=== PATIENT | male | born 1990 | race Caucasian/White ===

== ENCOUNTER 2017-05-16 21:30 | Emergency (ER) | payer OTHER ==
[~2017-05-16] VITALS: Ht 175.3 cm; Wt 68.0 kg
[~2017-05-16 21:30] MED LIST: ADVAIR 25028 BLISTER INH; ADVAIR 50028 BLISTE1 INH; ALBUTEROL SULF8.5 GM IH; ALBUTEROL0.83 MG/ML INH; ALBUTEROL2.5 MG/3 M IH; CLARITIN10 M5 PO; CLARITIN10 MG PO; DELTASONE10 MG PO; KEFLEX500 MG PO; NO MEDS; PREDNISONE20 M1 PO; PROAIR HFA8.5 GM IH; PROVENTIL HFA6.7 G1 IH; SINGULAIR10 M1 PO; SINGULAIR10 MG PO; SYMBICORT 160-1 PUFF INH; VENTOLIN HFA18 GM INH
[2017-05-16] MEDS ORDERED: VENTOLIN HFA18 G2 PO ×2 (22:09→22:10)
[2017-05-16] MEDS ORDERED: SINGULAIR10 M1 PO (22:09)
[2017-05-16] MEDS ORDERED: ZYRTEC10 M7 PO (22:10)
== END 2017-05-16 23:12 ==
LOC: EDMED 21:30
PROC: 2W3QXYZ Immobilization of Right Lower Leg using Other Device (ICD-10-PCS; principal; 2017-05-16)
DX: S93.401A Sprain of unspecified ligament of right ankle, initial encounter (principal); S93.601A Unspecified sprain of right foot, initial encounter; S83.91XA Sprain of unspecified site of right knee, initial encounter; J45.909 Unspecified asthma, uncomplicated; Z79.51 Long term (current) use of inhaled steroids; W17.2XXA Fall into hole, initial encounter; Y92.39 Other specified sports and athletic area as the place of occurrence of the external cause